=== PATIENT | female | born 1995 | race Caucasian/White ===

== ENCOUNTER 2016-11-26 11:28 | Emergency (ER) | payer MEDICAID ==
[2016-11-26 11:48] VITALS: RESP 16; TEMP 98.6
--- NOTE | 2016-11-26 12:00 | EDPHY ---
H & P Smoking Status: Current every day smoker Time Seen by Provider: 11/26/16 11:36 HPI/ROS: CHIEF COMPLAINT: seizure witnessed HISTORY OF PRESENT ILLNESS: 21-year-old female with known seizure disorder history arrives via ambulance after witnessed seizure while she was at a coffee shop. She missed her morning dose of Lamictal and Keppra. There was a postictal period according to witnesses which has now resolved. She is complaining of multiple abrasions including her hand but denies underlying osseous pain. No incontinence. No alcohol or drug use. No neck pain. No peripheral paresthesia, weakness, numbness. Patient is visiting from [place] PRIMARY CARE PROVIDER: in [place] REVIEW OF SYSTEMS: A ten point review of systems was performed and is negative with the exception of the items mentioned in the HPI PAST MEDICAL & SURGICAL HISTORY: known seizure disorder SOCIAL HISTORY: no alcohol or drug use recently PHYSICAL EXAM (Prior to examination, patient consented to physical exam, hands were washed and my usual and customary physical exam procedures followed) 1) GENERAL: Well-developed, well-nourished, alert and oriented. Appears to be in no acute distress. 2) HEAD: Normocephalic, atraumatic 3) HEENT: Pupils equal, round, reactive to light bilaterally. Sclera anicteric. Nasopharynx, abrasion to the philtrum, no underlying dental pain oropharynx, clear, no lesions. Ears bilaterally with normal tympanic membranes. No raccoon eyes. No Stuart sign. No rhinorrhea. No otorrhea. No hemotympanum. 4) NECK: Full range of motion, no meningeal signs. No midline C-spine pain. Full pain-free range of motion which does not elicit midline C-spine pain or peripheral paresthesia, weakness, numbness. 5) LUNGS: Clear auscultation bilaterally, no wheezes, no rhonchi, no retractions. 6) HEART: Regular rate and rhythm, no murmur, no heave, no gallop. 7) ABDOMEN: No guarding, no rebound, no focal tenderness, negative McBurney's 8) MUSCULOSKELETAL: abrasion to left dorsal hand with no underlying osseous pain full pain-free range of motion. Moving all extremities, no focal areas of tenderness, no obvious trauma. No peripheral edema or discoloration. 9) BACK: No CVA tenderness, no midline vertebral tenderness, no fluctuance, no step-off, no obvious trauma, no visual or palpable abnormality. 10) SKIN: No rash,. 11) Psychiatric: Patient is oriented X 3, there is no agitation. DIFFERENTIAL DIAGNOSIS: [in no particular include but limited to cardiac arrhythmia, breakthrough seizure, medication noncompliance (Riaz Bryan) Constitutional: Initial Vital Signs Temperature (C) 37 C 11/26/16 11:45 Heart Rate 93 11/26/16 11:45 Respiratory Rate 16 11/26/16 11:45 Blood Pressure 126/86 H 11/26/16 11:45 O2 Sat (%) 92 11/26/16 11:45 O2 Delivery Mode Room Air MDM/Departure - MDM Medications Given: Discontinued Medications Lamotrigine (Lamictal) 200 mg PO EDNOW ONE Stop: 11/26/16 12:30 Last Admin: 11/26/16 13:10 Dose: 200 mg Levetiracetam (Keppra) 750 mg PO EDNOW ONE Stop: 11/26/16 12:30 Last Admin: 11/26/16 12:40 Dose: 750 mg ED Course/Re-evaluation: Patient was re-evaluated with serial examinations. She is answering questions with no postictal symptoms while in the emergency department. She was given her morning dosages of Keppra and Lamictal. Recommend medication compliance in the future. I do not think that imaging studies are currently indicated at this time. Plan will be discharge home with usual and customary seizure precautions and instructions.Care and management in consultation with secondary supervising physician Dr Grimaldo . (Riaz Bryan) The patient was evaluated and managed by the physician purchasing administrative assistant. I have reviewed this chart and I agree with the findings and plan of care as documented , as indicated by my signature. I am the secondary supervising physician. ( Nadira Grimaldo) - Depart Disposition: Home, Routine, Self-Care Clinical Impression: Seizure, Noncompliance with medications Condition: Good Instructions: Epilepsy (ED) Additional Instructions: You may have had a seizure. Until your cleared by the your neurologist do not: Drive, swim alone, climb to heights, operate machinery please take her medication as directed and schedule. Referrals: Follow-up, with your neurologist in [place] on Tuesday [Other] - As per Instructions
[2016-11-26 12:17] LABS: % IMMATURE GRANULYOCYTES 0.3 % (0.0-1.1); ABSOLUTE IMMATURE GRANULOCYTES 0.02 10^3/uL (0.00-0.10); ADD DIFF? NO; ADD MORPH? NO; ADD SCAN? NO; ATYPICAL LYMPHOCYTE FLAG 10 (0-99); FRAGMENT RBC FLAG 0 (0-99); HEMATOCRIT 42.4 % (38.0-47.0); HEMOGLOBIN 14.8 g/dL (12.6-16.3); LEFT SHIFT FLG 0 (0-99); LIPEMIA HEMOLYSIS FLAG 90 (0-99); MEAN CELL HEMOGLOBIN 31.9 pg (27.9-34.1); MEAN CELL HEMOGLOBIN CONCENTR. 34.9 g/dL (32.4-36.7); MEAN CELL VOLUME 91.4 fL (81.5-99.8); MEAN PLATELET VOLUME 10.5 fL (8.7-11.7); PLATELET CLUMPS FLAG 0 (0-99); PLATELET COUNT 230 10^3/uL (150-400); RED BLOOD CELL COUNT 4.64 10^6/uL (4.18-5.33); RED CELL DISTRIBUTION WIDTH 13.6 % (11.5-15.2)
[2016-11-26] MEDS ORDERED: levETIRAcetam 500 MG TAB PO ONE (12:29)
[2016-11-26] MEDS ORDERED: lamoTRIgine 100 MG TAB PO ONE (12:29)
[2016-11-26 12:34] LABS: ANION GAP 13 mEq/L (8-16); CALCIUM 9.6 mg/dL (8.5-10.4); CARBON DIOXIDE 21 mEq/l (22-31); CHLORIDE 105 mEq/L (97-110); CREATININE 0.6 mg/dL (0.6-1.0); GLOMERULAR FILTRATION RATE > 60; GLUCOSE 95 mg/dL (70-100); POTASSIUM 3.8 mEq/L (3.5-5.2); SODIUM 139 mEq/L (134-144)
[2016-11-26 12:59] VITALS: BP 123/71; PULSE 81; O2SAT 96
== END 2016-11-26 13:11 | disposition home or self-care (01) ==
DX: G40.909 Epilepsy, unspecified, not intractable, without status epilepticus (principal); F17.200 Nicotine dependence, unspecified, uncomplicated; Z91.14 Patient's other noncompliance with medication regimen